=== PATIENT | male | born 1935 | race Caucasian/White ===

== ENCOUNTER 2016-12-22 08:38 | Emergency (ER) | payer MEDICARE, OTHER ==
[2016-12-22 09:00] VITALS: BP 141/74
--- NOTE | 2016-12-22 10:03 | UC ---
Skin Complaint HPI - HPI Summary HPI Summary: 81 yo male removed tick from left arm this AM unsure how long it was attached for not engorged - History of Current Complaint Chief Complaint: UCSkin Time Seen by Provider: 12/22/16 09:52 Stated Complaint: TICK BITE Hx Obtained From: Patient Onset/Duration: Sudden Onset Timing: Constant Onset Severity: Mild Current Severity: None Pain Intensity: 0 Pain Scale Used: 0-10 Numeric Location: Other - left arm Character: Redness Aggravating: Nothing Alleviating: Nothing Associated Signs & Symptoms: Positive: Negative Related History: Insect Bite/Sting - Allergy/Home Medications Allergies/Adverse Reactions: Allergies Allergy/AdvReac Type Severity Reaction Status Date / Time No Known Allergies Allergy Verified 07/29/16 08:56 Review of Systems Constitutional: Negative Skin: Negative Eyes: Negative ENT: Negative Respiratory: Negative Cardiovascular: Negative Gastrointestinal: Negative Genitourinary: Negative Motor: Negative Neurovascular: Negative Musculoskeletal: Negative Neurological: Negative Psychological: Negative All Other Systems Reviewed And Are Negative: Yes PMH/Surg Hx/FS Hx/Imm Hx Previously Healthy: Yes Endocrine History Of: Denies: Diabetes, Thyroid Disease Cardiovascular History Of: Denies: Cardiac Disorders, Hypertension Respiratory History Of: Denies: COPD, Asthma GI/ History Of: Denies: Ulcer - Surgical History Surgical History: Yes Surgery Procedure, Year, and Place: Hernia repair 2012 [facility] – [place] - Family History Known Family History: Positive: Hypertension, Other - DAUGHTER HAS HAD LYME DZ - Social History Alcohol Use: Occasionally Substance Use Type: None Smoking Status (MU): Never Smoked Tobacco Have You Smoked in the Last Year: No Physical Exam Triage Information Reviewed: Yes Appearance: Well-Appearing, No Pain Distress, Well-Nourished Vital Signs: Initial Vital Signs Temp 97.8 F 12/22/16 08:54 Pulse 62 12/22/16 08:54 Resp 18 12/22/16 08:54 BP 141/74 12/22/16 08:54 Pulse Ox 99 12/22/16 08:54 Vital Signs Reviewed: Yes Eyes: Positive: Conjunctiva Clear ENT: Negative: Nasal congestion, Nasal drainage, Trismus, Muffled/hoarse voice Neck: Positive: Supple, Nontender, No Lymphadenopathy Respiratory: Positive: Lungs clear, Normal breath sounds, No respiratory distress Cardiovascular: Positive: RRR, No Murmur Musculoskeletal: Positive: ROM Intact, No Edema Neurological: Positive: Alert Psychological Exam: Normal Skin: Positive: Other - about 3 cm area of faint erthyema where tick was tick examined and not engorged Course/Dx - Diagnoses Provider Diagnoses: tick bite. lyme disease prophylaxis Discharge - Discharge Plan Condition: Stable Disposition: HOME Prescriptions: DOXYcycline CAP(*) [DOXYcycline 100MG CAP(*)] 200 mg PO ONCE #2 cap Patient Education Materials: Tick Bite (ED) Referrals: Isidro Ta MD [Primary Care Provider] - If Needed
== END 2016-12-22 10:03 | disposition home or self-care (01) ==
LOC: UCEAST 08:38
DX: S40.862A Insect bite (nonvenomous) of left upper arm, initial encounter (principal); W57.XXXA Bitten or stung by nonvenomous insect and other nonvenomous arthropods, initial encounter; Y93.9 Activity, unspecified; Y99.9 Unspecified external cause status
CPT/HCPCS: 99212; G0463

== ENCOUNTER 2017-04-23 13:23 | Emergency (ER) | payer MEDICARE, OTHER ==
[2017-04-23 13:34] VITALS: BP 142/75
--- NOTE | 2017-04-23 14:06 | UC ---
Skin Complaint HPI - HPI Summary HPI Summary: FIVE DAYS OF CIRCULAR SPREADING RED (ANTERIOR) LEFT LEG RASH. POSSIBLE BUG BITE. NO FEVER. NO JOINT ACHES. NO KNOWN TICK BITE, BUT WORKS AT [employer] AND FREQUENTLY 'PULLS TICKS OFF' OF HIMSELF. - History of Current Complaint Chief Complaint: UCSkin Time Seen by Provider: 04/23/17 13:37 Stated Complaint: SKIN ISSUE Hx Obtained From: Patient Onset/Duration: Gradual Onset, Lasting Days, Still Present Skin Exposure Onset/Duration: Days Ago Onset Severity: Mild Current Severity: Mild Location: Discrete - LEFT ANTERIOR LEG Aggravating: Nothing Alleviating: Nothing Associated Signs & Symptoms: Positive: Rash. Negative: Fever, Chills, Cough, Tenderness, Red Streaks Related History: Possible Reaction to: Insect, Possible Reaction to: Environmental Exposure - Allergy/Home Medications Allergies/Adverse Reactions: Allergies Allergy/AdvReac Type Severity Reaction Status Date / Time No Known Allergies Allergy Verified 04/23/17 13:34 Review of Systems Constitutional: Negative Skin: Rash - 4CM X 3CM ERYTHEMATOUS CIRCULAR RASH LEFT ANTERIOR LEG Eyes: Negative ENT: Negative Respiratory: Negative Cardiovascular: Negative Gastrointestinal: Negative Genitourinary: Negative Motor: Negative Neurovascular: Negative Musculoskeletal: Negative Neurological: Negative Psychological: Negative All Other Systems Reviewed And Are Negative: Yes PMH/Surg Hx/FS Hx/Imm Hx Previously Healthy: Yes - Surgical History Surgical History: Yes Surgery Procedure, Year, and Place: Hernia repair [place] [facility] [place] - Family History Known Family History: Positive: Hypertension, Other - DAUGHTER HAS HAD LYME DZ - Social History Occupation: Employed Part-time - [employer], Retired Lives: With Family Alcohol Use: None Substance Use Type: None Smoking Status (MU): Never Smoked Tobacco Have You Smoked in the Last Year: No - Immunization History Most Recent Tetanus Shot: unknown Physical Exam Triage Information Reviewed: Yes Appearance: Well-Appearing, No Pain Distress, Well-Nourished Vital Signs: Initial Vital Signs Temp 98.2 F 04/23/17 13:31 Pulse 64 04/23/17 13:31 Resp 12 04/23/17 13:31 BP 142/75 04/23/17 13:31 Pulse Ox 99 04/23/17 13:31 Vital Signs Reviewed: Yes Eye Exam: Normal ENT Exam: Normal ENT: Positive: Normal ENT inspection, TMs normal Dental Exam: Normal Neck exam: Normal Neck: Positive: Supple, Nontender Respiratory Exam: Normal Respiratory: Positive: Chest non-tender, Lungs clear Cardiovascular Exam: Normal Cardiovascular: Positive: RRR, No Murmur Abdominal Exam: Normal Musculoskeletal Exam: Normal Neurological Exam: Normal Psychological Exam: Normal Skin: Positive: rashes - 4CM X 3CM ERYTHEMATOUS CIRCULAR RASH LEFT ANTERIOR LEG Course/Dx - Differential Diagnoses - Skin Complaint Differential Diagnoses: Abscess, Cellulitis, Contact Dermatitis, Eczema, Impetigo, Local Allergic Reaction, MRSA, Poison [place], Poison [place], Tick Born Illness, Tinea, Urticaria, Varicella Zoster - Diagnoses Provider Diagnoses: CELLULITIS LEFT ANTERIOR LEG Discharge - Discharge Plan Condition: Stable Disposition: HOME Prescriptions: DOXYcycline CAP(*) [DOXYcycline 100MG CAP(*)] 100 mg PO BID #28 cap Patient Education Materials: Cellulitis (ED) Referrals: Isidro Ta MD [Primary Care Provider] -
== END 2017-04-23 14:00 | disposition home or self-care (01) ==
LOC: UCEAST 13:23
DX: L03.116 Cellulitis of left lower limb (principal)
CPT/HCPCS: 99212; G0463

== ENCOUNTER 2017-08-04 10:25 | Emergency (ER) | payer MEDICARE, OTHER ==
[2017-08-04 12:43] VITALS: BP 140/65
[2017-08-04] MEDS ORDERED: DOXYcycline CAP(*) 100 MG PO ONE (13:12)
--- NOTE | 2017-08-04 13:14 | UC ---
Skin Complaint HPI - HPI Summary HPI Summary: Tick on left lower leg removed last night may have been there for 2 days - History of Current Complaint Chief Complaint: UCSkin Time Seen by Provider: 08/04/17 13:07 Stated Complaint: TICK BITE Hx Obtained From: Patient Onset/Duration: Sudden Onset, Lasting Days Skin Exposure Onset/Duration: Days Ago - 2 Timing: Constant Onset Severity: Mild Current Severity: None Location: Discrete - left lower leg Aggravating Factor(s): Nothing Alleviating Factor(s): Nothing Associated Signs & Symptoms: Positive: Negative Related History: Insect Bite/Sting - Allergy/Home Medications Allergies/Adverse Reactions: Allergies Allergy/AdvReac Type Severity Reaction Status Date / Time No Known Allergies Allergy Verified 08/04/17 10:40 Review of Systems Constitutional: Negative Skin: Other - bruise at site of tick removal Eyes: Negative ENT: Negative Respiratory: Negative Cardiovascular: Negative Gastrointestinal: Negative Genitourinary: Negative Motor: Negative Neurovascular: Negative Musculoskeletal: Negative Neurological: Negative Psychological: Negative Is Patient Immunocompromised?: No All Other Systems Reviewed And Are Negative: Yes PMH/Surg Hx/FS Hx/Imm Hx Previously Healthy: Yes Cancer History: Other Other Cancer History: CLL - Surgical History Surgical History: Yes Surgery Procedure, Year, and Place: Hernia repair 2013 [facility] [place] - Family History Known Family History: Positive: Hypertension, Other - DAUGHTER HAS HAD LYME DZ - Social History Occupation: Retired Lives: Alone Alcohol Use: None Substance Use Type: None Smoking Status (MU): Never Smoked Tobacco Have You Smoked in the Last Year: No - Immunization History Most Recent Tetanus Shot: unknown Physical Exam Triage Information Reviewed: Yes Appearance: Well-Appearing, No Pain Distress, Well-Nourished Vital Signs: Initial Vital Signs Temp 98.9 F 08/04/17 10:41 Pulse 73 08/04/17 10:41 Resp 20 08/04/17 10:41 BP 145/72 08/04/17 10:41 Pulse Ox 100 08/04/17 10:41 Vital Signs Reviewed: Yes Eye Exam: Normal Eyes: Positive: Conjunctiva Clear ENT Exam: Normal ENT: Positive: Normal ENT inspection, Hearing grossly normal, Pharynx normal. Negative: Nasal congestion, Nasal drainage, Trismus, Muffled voice, Hoarse voice , Sinus tenderness Dental Exam: Normal Neck exam: Normal Neck: Positive: Supple, Nontender, No Lymphadenopathy Respiratory Exam: Normal Respiratory: Positive: Chest non-tender, No respiratory distress, No accessory muscle use Cardiovascular Exam: Normal Cardiovascular: Positive: RRR, Pulses Normal, Brisk Capillary Refill Musculoskeletal Exam: Normal Musculoskeletal: Positive: Strength Intact, ROM Intact, No Edema Neurological Exam: Normal Neurological: Positive: Alert, Muscle Tone Normal Psychological Exam: Normal Skin Exam: Other Skin: Positive: Other - bruise at site of tick attachment on left lower leg Course/Dx - Course Course Of Treatment: soap and water wash Doxycycline 200mg po times one follow blood pressure with PCP - Diagnoses Provider Diagnoses: tick exposure, Lyme PEP, HYpertension with out diagnosis Discharge - Discharge Plan Condition: Stable Disposition: HOME Patient Education Materials: Tick Bite (ED), Hypertension (ED) Referrals: Isidro Ta MD [Primary Care Provider] - 2 Weeks
== END 2017-08-04 13:23 | disposition home or self-care (01) ==
LOC: UCEAST 10:25
DX: S80.862A Insect bite (nonvenomous), left lower leg, initial encounter (principal); W57.XXXA Bitten or stung by nonvenomous insect and other nonvenomous arthropods, initial encounter; Y93.9 Activity, unspecified; Y92.9 Unspecified place or not applicable; Y99.9 Unspecified external cause status; R03.0 Elevated blood-pressure reading, without diagnosis of hypertension
CPT/HCPCS: 99211; A9270-GY; G0463

== ENCOUNTER 2021-06-28 17:58 | Observation (INO) ==
[2021-06-28] MEDS ORDERED: Lactated Ringers 1000 ml BAG 1,000 ML IV ONE (18:18)
[2021-06-28 18:57] LABS: Hematocrit 35 % (42-52); Hemoglobin 11.3 g/dL (14.0-18.0); Mean Corpuscular HGB Conc 33 g/dL (31-36); Mean Corpuscular Hemoglobin 29 pg (27-31); Mean Corpuscular Volume 88 fL (80-94); Mean Platelet Volume 8.5 fL (7.4-10.4); Platelet Count 246 10^3/uL (150-450); Red Blood Count 3.93 10^6 /uL (4.18-5.48); Red Cell Distribution Width 16 % (10-15)
[2021-06-28 19:18] LABS: ALT 13 U/L (7-52); AST 57 U/L (13-39); Albumin 3.9 g/dL (3.2-5.2); Albumin/Globulin Ratio 1.4 (1-3); Alkaline Phosphatase 72 U/L (35-149); Anion Gap 7 mmol/L (2-11); Blood Urea Nitrogen 20 mg/dL (6-24); CO2 Carbon Dioxide 24 mmol/L (22-32); Calcium 9.5 mg/dL (8.6-10.3); Chloride 96 mmol/L (101-111); Globulin 2.8 g/dL (2-4); Glucose 97 mg/dL (70-100); Magnesium 1.9 mg/dL (1.9-2.7); Potassium 4.2 mmol/L (3.5-5.0); Sodium 127 mmol/L (135-145); Total Protein 6.7 g/dL (6.4-8.9)
[2021-06-28 19:38] LABS: Troponin I 0.03 ng/mL (<0.03)
[2021-06-28 19:48] LABS: ABS Basophils 0.1 10^3/ul (0-0.2); ABS Lymphocytes 11.6 10^3/ul (1.0-4.8); ABS Neutrophils 6.4 10^3/ul (1.5-7.7); Eosinophil % 0.2 %; Lymphocyte % 60.8 %
[2021-06-28 20:50] LABS: Urine Appearance Clear; Urine Bilirubin Negative (Negative); Urine Blood 3+ (Negative); Urine Color Straw; Urine Glucose Negative (Negative); Urine Ketones Negative (Negative); Urine Nitrite Negative (Negative); Urine Protein Negative (Negative); Urine Specific Gravity 1.006 (1.002-1.030); Urine Urobilinogen Negative (Negative)
[2021-06-28 20:55] LABS: Urine Bacteria Absent (Absent); Urine Red Blood Cell 3+(>10/hpf) (Absent); Urine White Blood Cell Trace(0-5/hpf) (Absent)
[2021-06-28 21:31] LABS: TSH Ultra Thyroid Stim Horm 1.65 mcIU/mL (0.34-5.60)
[2021-06-28 22:42] LABS: Troponin I 0.04 ng/mL (<0.03)
[2021-06-29 00:35] LABS: Troponin I 0.04 ng/mL (<0.03)
[2021-06-29 02:20] LABS: Rapid COVID-19 Molecular Undetected (Undetected)
[2021-06-29 07:14] LABS: Troponin I 0.05 ng/mL (<0.03)
[2021-06-29 07:26] LABS: Folate > 20.00 ng/mL (5.90-24.80)
[2021-06-29 07:27] LABS: Vitamin B12 586 pg/mL (180-914)
[2021-06-29] MEDS ORDERED: Perflutren Lipid Microsphere 3 ML VIAL ONE (07:57)
[2021-06-29 08:51] LABS: Hematocrit 37 % (42-52); Hemoglobin 12.2 g/dL (14.0-18.0); Mean Corpuscular HGB Conc 33 g/dL (31-36); Mean Corpuscular Hemoglobin 29 pg (27-31); Mean Corpuscular Volume 88 fL (80-94); Mean Platelet Volume 8.6 fL (7.4-10.4); Platelet Count 220 10^3/uL (150-450); Red Blood Count 4.22 10^6 /uL (4.18-5.48); Red Cell Distribution Width 15 % (10-15); White Blood Count 12.5 10^3/uL (3.5-10.8)
[2021-06-29 09:07] LABS: Calcium 9.2 mg/dL (8.6-10.3); Potassium 3.9 mmol/L (3.5-5.0)
[2021-06-29] MEDS: IBRUTINIB 420 MG PO SCH (10:36)
[2021-06-30 06:00] LABS: Hematocrit 32 % (42-52); Hemoglobin 10.7 g/dL (14.0-18.0); Mean Corpuscular HGB Conc 33 g/dL (31-36); Mean Corpuscular Hemoglobin 29 pg (27-31); Mean Corpuscular Volume 88 fL (80-94); Mean Platelet Volume 8.9 fL (7.4-10.4); Platelet Count 222 10^3/uL (150-450); Red Blood Count 3.68 10^6 /uL (4.18-5.48); Red Cell Distribution Width 16 % (10-15); White Blood Count 16.8 10^3/uL (3.5-10.8)
[2021-06-30 06:18] LABS: Anion Gap 7 mmol/L (2-11); Blood Urea Nitrogen 19 mg/dL (6-24); CO2 Carbon Dioxide 24 mmol/L (22-32); Calcium 8.7 mg/dL (8.6-10.3); Chloride 99 mmol/L (101-111); Cholesterol 145 mg/dL; Glucose 87 mg/dL (70-100); LDL Cholesterol 90 mg/dL; Sodium 130 mmol/L (135-145); Triglycerides 73 mg/dL
[2021-06-30 06:29] LABS: ABS Basophils 0.1 10^3/ul (0-0.2); ABS Eosinophils 0.2 10^3/ul (0-0.6); ABS Lymphocytes 10.7 10^3/ul (1.0-4.8); ABS Monocytes 1.1 10^3/ul (0-0.8); ABS Neutrophils 4.9 10^3/ul (1.5-7.7); Lymphocyte % 63.5 %
[2021-06-30] MEDS: IBRUTINIB 420 MG PO SCH (10:35)
[2021-06-30 11:28] VITALS: BP 116/56
[2021-06-30 15:05] LABS: % Iron Saturation 6 % (15-55); Iron 21 ug/dL (50-212); Total Iron Binding Capacity 374 mcg/dL (250-450); Transferrin 267 mg/dL (203-362); Unsaturated Iron Binding < 359 ug/dL
[2021-06-30 15:23] LABS: Vitamin B12 443 pg/mL (180-914)
== END 2021-06-30 16:00 | disposition home or self-care (01) ==
LOC: ED 17:58 → MEDTELE 17:58 → SUATTDRO 06-29 03:07
PROVIDERS: ADMIT Internal Medicine; ATTEND Hospitalist

== ENCOUNTER 2024-03-04 06:10 | Observation (INO) ==
[2024-03-04 06:57] LABS: ABS Lymphocytes 3.1 10^3/uL (1.0-4.8); ABS Monocytes 0.5 10^3/uL (0.0-1.1); ABS Neutrophils 4.9 10^3/uL (1.5-7.6); ABS Nucleated RBC 0.06 10^3/ul; Eosinophil % 0.6 %; Hemoglobin 15.6 g/dL (13.2-16.3); Lymphocyte % 35.8 %; Mean Corpuscular Hemoglobin 33.4 pg (27-33); Mean Corpuscular Hgb Conc 36.3 g/dL (31-36); Nucleated Red Blood Cells % 0.7 %/100WBC (0.0-0.8); Platelet Count 202 10^3/uL (150-450); Red Blood Count 4.68 10^6/uL (4.06-5.63); Red Cell Distribution Width 13.5 % (12-17); White Blood Count 8.6 10^3/uL (3.6-10.2)
[2024-03-04 07:14] LABS: High Sens Troponin Baseline 11 pg/mL (<20)
[2024-03-04 07:28] LABS: Urine Appearance Clear; Urine Bilirubin Negative (Negative); Urine Blood 1+ (Negative); Urine Color Light-Yellow; Urine Glucose Negative (Negative); Urine Ketones Trace (Negative); Urine Nitrite Negative (Negative); Urine Protein Negative (Negative); Urine Urobilinogen Negative (Negative)
[2024-03-04 07:33] LABS: Urine Bacteria 1+ /HPF (Absent); Urine Red Blood Cell 2+(6-10/hpf) /HPF (0-Trace); Urine White Blood Cell 1+(6-10/hpf) /HPF (0-Trace)
[2024-03-04 07:34] LABS: ALT 14 U/L (7-52); Albumin/Globulin Ratio 1.6 (1-3); Alkaline Phosphatase 68 U/L (35-149); Anion Gap 9 mmol/L (2-16); Blood Urea Nitrogen 15 mg/dL (6-24); CO2 Carbon Dioxide 23 mmol/L (22-32); Calcium 9.1 mg/dL (8.6-10.3); Chloride 89 mmol/L (101-111); Creatinine, Serum 1.05 mg/dL (0.67-1.17); Globulin 2.5 g/dL (2-4); Glucose 108 mg/dL (70-100); Magnesium 1.8 mg/dL (1.9-2.7); Sodium 121 mmol/L (135-145); Total Bilirubin 0.9 mg/dL (0.2-1.0); Total Protein 6.5 g/dL (6.4-8.9); eGFR CKD-EPI 68.3 (>60)
[2024-03-04 07:43] LABS: TSH Ultra Thyroid Stim Horm 2.13 mcIU/mL (0.34-5.60)
[2024-03-04 08:31] LABS: Potassium Redraw 4.3 mmol/L (3.5-5.0)
[2024-03-04] MEDS: NS 0.9% 1000 ml BAG 1,000 ML IV ONE (09:14)
[2024-03-04] MEDS: NS 0.9% 1000 ml BAG 1,000 ML IV SCH (11:12)
[2024-03-04 11:57] LABS: Urine Osmo 407 mOsm/kg (150-1150)
[2024-03-04 12:27] LABS: Osmolality Serum 254 mOsm/kg (275-295)
[2024-03-04 18:16] LABS: Anion Gap 6 mmol/L (2-16); Blood Urea Nitrogen 12 mg/dL (6-24); CO2 Carbon Dioxide 23 mmol/L (22-32); Calcium 8.5 mg/dL (8.6-10.3); Chloride 90 mmol/L (101-111); Creatinine, Serum 0.91 mg/dL (0.67-1.17); Glucose 100 mg/dL (70-100); Sodium 119 mmol/L (135-145); eGFR CKD-EPI 81.1 (>60)
[2024-03-04 22:44] LABS: Calcium 8.4 mg/dL (8.6-10.3); Creatinine, Serum 0.94 mg/dL (0.67-1.17); Potassium 4.2 mmol/L (3.5-5.0)
[2024-03-05 08:52] LABS: Calcium 8.8 mg/dL (8.6-10.3); Creatinine, Serum 1.1 mg/dL (0.67-1.17); Potassium 4.2 mmol/L (3.5-5.0); eGFR CKD-EPI 64.6 (>60)
[2024-03-05 16:07] LABS: Calcium 9.3 mg/dL (8.6-10.3); Creatinine, Serum 1.15 mg/dL (0.67-1.17); Potassium 4.5 mmol/L (3.5-5.0); eGFR CKD-EPI 61.2 (>60)
[2024-03-06 09:54] LABS: Calcium 9.3 mg/dL (8.6-10.3); Creatinine, Serum 1.36 mg/dL (0.67-1.17); Potassium 4.1 mmol/L (3.5-5.0); eGFR CKD-EPI 50.1 (>60)
[2024-03-06 13:53] VITALS: BP 110/63
[2024-03-07 21:03] LABS: Tissue Transglutaminase IgA Ab <1.2 U/mL
[2024-03-08] LABS: Immunoglobulin A 93 mg/dL (61 - 356)
== END 2024-03-06 16:25 | disposition home or self-care (01) ==
LOC: EDHOLD 06:10 → ED 06:10 → SUATTDRO 09:41 → EDHOLD 18:03 → MEDTELE 18:32
PROVIDERS: ADMIT Hospitalist; ATTEND Internal Medicine